=== PATIENT | female | born 1950 | race Caucasian/White ===

== ENCOUNTER 2019-01-15 09:27 | Day surgery (SDC) | payer MEDICARE, BC, OTHER ==
[~2019-01-15] VITALS: Ht 165.1 cm; Wt 106.2 kg
[~2019-01-15 09:27] MED LIST: ACETAMINOPHEN 325 MG TAB PO PRN; BSS with VANC/TOB/EPI for EYE CASES IR ONE; CYCLOPENTOLATE 2% OPHTH SOLN 2ML BTL OS ONE; FISH1000 PO; HEALON DUET PRO(HEALON 10MG/ML 0.55ML & HEALON ENDOCOAT 30MG/ML 0.85ML) As Ordered ONE; LIDOCAINE 1% SDV 5 ML VIAL As Ordered ONE; LIDOCAINE 3.5 % 1ML OPHTH TOPICAL GEL OU ONE; LISI-538 PO; MOXIFLOXACIN IN BSS 0.25MG/0.25ML INTRACAMERAL INJ (OR EYE ONLY)(J2280) As Ordered ONE; MYRB25TA PO; OFLOXACIN 0.3 % (OCUFLOX) OPTH SOL 5ML OS ONE; OMEP20CA3 PO; PHENYLEPHRINE 2.5% OPHTH SOL 2ML OS ONE; PHENYLEPHRINE HCL 10 % OPHTH. SOL 5ML OS PRN; POVIDONE-IODINE 5% OPHTH PREP SOL 30ML As Ordered ONE; PRIL40CA PO; REGL10TA6 PO; TRIAMCINOLONE PRES FR 40 MG/ML 1ML(TRIESENCE)(OR EYE ONLY)(J3300 PER 1MG) As Ordered ONE; TROPICAMIDE 1% OPHTH SOLN 2ML OS ONE; TYLE650T25 PO; TYLE650T35 PO; VESI5TAB2 PO; VITA100067 PO; WELLTAB38 PO
[2019-01-15] MEDS ORDERED: TROPICAMIDE 1% OPHTH SOLN 2ML As Ordered ONE (10:04)
[2019-01-15] MEDS ORDERED: CYCLOPENTOLATE 2% OPHTH SOLN 2ML BTL As Ordered ONE (10:04)
[2019-01-15] MEDS ORDERED: PHENYLEPHRINE 2.5% OPHTH SOL 2ML As Ordered ONE (10:04)
[2019-01-15] MEDS ORDERED: OFLOXACIN 0.3 % (OCUFLOX) OPTH SOL 5ML As Ordered ONE (10:04)
[2019-01-15] MEDS ORDERED: MIDAZOLAM INJ 2 MG/2 ML VIAL (J2250) As Ordered ONE (10:41)
[2019-01-15] MEDS ORDERED: fentaNYL 100 MCG/2 ML INJECTION (J3010) As Ordered ONE (10:41)
[2019-01-15] MEDS ORDERED: LIDOCAINE 2% W/EPIN INJ 20ML **PRES FREE XX ONE (11:13)
[2019-01-15 11:22] VITALS: BP 114/58
[2019-01-15] MEDS ORDERED: AcetaZOLAMIDE 500 MG ER CAP PO ONE (11:45)
[2019-01-15] MEDS ORDERED: TRIMETHOBENZAMIDE 300 MG CAP PO PRN (11:45)
== END 2019-01-15 12:02 | disposition home or self-care (01) ==
LOC: M SDC 09:27
PROVIDERS: ATTEND Ophthalmology
DX: H25.9 Unspecified age-related cataract (principal); I10 Essential (primary) hypertension; E78.5 Hyperlipidemia, unspecified; R73.03 Prediabetes; K21.9 Gastro-esophageal reflux disease without esophagitis; Z88.8 Allergy status to other drugs, medicaments and biological substances; Z79.899 Other long term (current) drug therapy
CPT/HCPCS: 66984; 92015; J2250; J2280; J3010; J3300; V2632

== ENCOUNTER 2019-03-14 07:30 | Day surgery (SDC) | payer MEDICARE, BC, OTHER ==
[~2019-03-14] VITALS: Ht 165.1 cm; Wt 104.3 kg
[~2019-03-14 07:30] MED LIST changes: +CYCLOPENTOLATE 2% OPHTH SOLN 2ML BTL OD ONE; -CYCLOPENTOLATE 2% OPHTH SOLN 2ML BTL OS ONE; +MIDAZOLAM INJ 2 MG/2 ML VIAL (J2250) As Ordered ONE; +OFLOXACIN 0.3 % (OCUFLOX) OPTH SOL 5ML OD ONE; -OFLOXACIN 0.3 % (OCUFLOX) OPTH SOL 5ML OS ONE; +ONDANSETRON 4MG/2ML VIAL (J2405) As Ordered ONE; +PHENYLEPHRINE 2.5% OPHTH SOL 2ML OD ONE; -PHENYLEPHRINE 2.5% OPHTH SOL 2ML OS ONE; +PHENYLEPHRINE HCL 10 % OPHTH. SOL 5ML OD PRN; -PHENYLEPHRINE HCL 10 % OPHTH. SOL 5ML OS PRN; +TROPICAMIDE 1% OPHTH SOLN 2ML OD ONE; -TROPICAMIDE 1% OPHTH SOLN 2ML OS ONE; +VITAD1000T PO; +fentaNYL 100 MCG/2 ML INJECTION (J3010) As Ordered ONE
[2019-03-14] MEDS ORDERED: TRIAMCINOLONE PRES FR 40 MG/ML 1ML(TRIESENCE)(OR EYE ONLY)(J3300 PER 1MG) As Ordered ONE (09:42)
[2019-03-14] MEDS ORDERED: LIDOCAINE 2% W/EPIN INJ 20ML **PRES FREE As Ordered ONE (10:23)
[2019-03-14] MEDS ORDERED: AcetaZOLAMIDE 500 MG ER CAP As Ordered ONE (11:07)
[2019-03-14] MEDS ORDERED: TRIMETHOBENZAMIDE 300 MG CAP PO PRN (11:15)
[2019-03-14] MEDS: AcetaZOLAMIDE 500 MG ER CAP PO ONE (11:20)
[2019-03-14 11:25] VITALS: BP 111/56
== END 2019-03-14 11:35 | disposition home or self-care (01) ==
LOC: M SDC 07:30
PROVIDERS: ATTEND Ophthalmology
DX: H25.9 Unspecified age-related cataract (principal); I10 Essential (primary) hypertension; E78.5 Hyperlipidemia, unspecified; K21.9 Gastro-esophageal reflux disease without esophagitis; R73.03 Prediabetes; Z79.899 Other long term (current) drug therapy
CPT/HCPCS: 66984; 92015; J2250; J2280; J2405; J3010; J3300; V2632

== ENCOUNTER → 2019-11-28 | Outpatient (CLI) | payer MEDICARE, BC, OTHER ==
[~2019-11-28] MED LIST changes: -ACETAMINOPHEN 325 MG TAB PO PRN; -BSS with VANC/TOB/EPI for EYE CASES IR ONE; +CHOL100029 PO; -CYCLOPENTOLATE 2% OPHTH SOLN 2ML BTL OD ONE; -HEALON DUET PRO(HEALON 10MG/ML 0.55ML & HEALON ENDOCOAT 30MG/ML 0.85ML) As Ordered ONE; -LIDOCAINE 1% SDV 5 ML VIAL As Ordered ONE; -LIDOCAINE 3.5 % 1ML OPHTH TOPICAL GEL OU ONE; -MIDAZOLAM INJ 2 MG/2 ML VIAL (J2250) As Ordered ONE; -MOXIFLOXACIN IN BSS 0.25MG/0.25ML INTRACAMERAL INJ (OR EYE ONLY)(J2280) As Ordered ONE; -OFLOXACIN 0.3 % (OCUFLOX) OPTH SOL 5ML OD ONE; +OMEP1CAP73 PO; -OMEP20CA3 PO; -ONDANSETRON 4MG/2ML VIAL (J2405) As Ordered ONE; -PHENYLEPHRINE 2.5% OPHTH SOL 2ML OD ONE; -PHENYLEPHRINE HCL 10 % OPHTH. SOL 5ML OD PRN; -POVIDONE-IODINE 5% OPHTH PREP SOL 30ML As Ordered ONE; -TRIAMCINOLONE PRES FR 40 MG/ML 1ML(TRIESENCE)(OR EYE ONLY)(J3300 PER 1MG) As Ordered ONE; -TROPICAMIDE 1% OPHTH SOLN 2ML OD ONE; -VITAD1000T PO; -fentaNYL 100 MCG/2 ML INJECTION (J3010) As Ordered ONE
[2019-11-28 10:44] LABS: HEMATOCRIT 42.3 % (36.0-47.0); HEMOGLOBIN 13.1 g/dl (12.0-15.5); MEAN CORPUSCULAR HEMOGLOBIN 29.2 pg (27.0-33.0); MEAN CORPUSCULAR VOLUME 94.4 fl (80.0-96.0); PLATELET COUNT, AUTOMATED 201 10^3/uL (150-450); RED BLOOD COUNT 4.48 10^6/uL (4.00-5.40); WHITE BLOOD COUNT 8.2 10^3/uL (4.0-10.0)
[2019-11-28 10:56] LABS: INR 1.06; PROTHROMBIN TIME 13.5 SECONDS (11.8-14.0)
[2019-11-28 11:10] LABS: ERYTHROCYTE SEDIMENTATION RATE 26 mm/hr (0-30)
[2019-11-28 11:12] LABS: ALBUMIN 4.2 GM/DL (3.2-5.2); ALT/SGPT 27 U/L (12-78); BILIRUBIN,TOTAL 0.3 MG/DL (0.2-1.0); BLOOD UREA NITROGEN 22 MG/DL (7-18); CALCIUM LEVEL 8.9 MG/DL (8.8-10.2); CARBON DIOXIDE LEVEL 24 MEQ/L (21-32); CHLORIDE LEVEL 107 MEQ/L (98-107); CREATININE FOR GFR 0.82 MG/DL (0.55-1.30); GLOMERULAR FILTRATION RATE > 60.0 (>45); GLUCOSE, FASTING 116 MG/DL (70-100); POTASSIUM SERUM 4.5 MEQ/L (3.5-5.1); SODIUM LEVEL 138 MEQ/L (136-145); TOTAL PROTEIN 7.3 GM/DL (6.4-8.2)
--- NOTE | 2019-11-28 12:35 | REP ---
PA and lateral chest: Comparison is 11/15/2012. The lung colbert are clear. The cardiac size is normal. The maine, mediastinum, and skeletal structures are unremarkable except for narrowing of the subacromial spaces of the shoulders bilaterally, unchanged. Impression: Essentially negative PA and lateral chest. There is no interval change. Electronically Signed by Nick Salazar MD 11/28/2019 12:28 P
--- NOTE | 2019-11-30 20:01 | ECGEPIP ---
[facility] Test Date: 2019-11-28 Pat Name: JULI ADAM Department: Room: - Gender: Female Emergency Medical Tech: CHANELLE : 1950 Requested By: Bing Hagen Order Number: [id number] Reading MD: Nilton Monge Measurements Intervals [place] Rate: 65 P: 63 WI: 179 QRS: 37 QRSD: 101 T: 51 QT: 409 QTc: 426 Interpretive Statements SINUS RHYTHM NO PRIOR Electronically Signed on 11-30-2019 20:00:59 EST by Nilton Monge
== END ==
LOC: M LAB 10:04
PROVIDERS: ATTEND Orthopaedic Surgery
DX: M16.11 Unilateral primary osteoarthritis, right hip (principal); Z79.01 Long term (current) use of anticoagulants

== ENCOUNTER 2019-12-21 07:41 | Inpatient (IN) | payer MEDICARE, BC, OTHER ==
--- NOTE | 2019-12-11 17:32 | HPE ---
DATE OF ANTICIPATED ADMISSION: 12/21/2019 ATTENDING PHYSICIAN: Dr. Bing Jay CHIEF COMPLAINT: Right hip pain and stiffness. HISTORY: This is a pleasant 69-year-old female patient with progressively worsening right hip pain and stiffness that has failed to improve with conservative management. She has elected for surgery for her continued symptoms and has been consented for a right total hip arthroplasty with Dr. Jay. ALLERGIES: SIMVASTATIN - muscle cramps. CURRENT MEDICATIONS: - lisinopril 20 mg one by mouth daily - Myrbetriq 25 mg one by mouth daily - fish oil 1000 mg one by mouth daily - aspirin 81 mg one by mouth daily - vitamin D 1000 units one by mouth daily - vitamin CoQ10 100 mg one by mouth daily - omeprazole 20 mg one by mouth daily - Crestor 10 mg one by mouth daily - glaucoma drops MEDICAL HISTORY: Hypertension, depression, gastroesophageal reflux disease (GERD), stress incontinence, hyperlipidemia, diverticulosis. SURGICAL HISTORY: Carpal tunnel release, bilateral, dilation and curettage (D and C), colonoscopy, hysterectomy, right hand tendon repair, bilateral cataract extractions. FAMILY HISTORY: Father Alzheimer's, mother breast cancer and lung cancer. SOCIAL HISTORY: Denies tobacco or alcohol use. REVIEW OF SYSTEMS: Denies fever, chills, chest pain, shortness of breath, nausea, vomiting, diarrhea. Denies any recent upper respiratory or urinary tract infection symptoms. PHYSICAL EXAM: She is a well-developed, well-nourished adult female patient in no apparent distress. She ambulates in the clinic today with a non-antalgic gait. Normocephalic, atraumatic. Neck: Supple and nontender with no lymphadenopathy or jugular venous distention (JVD). S1, S2 auscultated. Lungs: Clear to auscultation bilaterally. Abdomen: Soft and nontender. Right hip with overlying skin intact. No obvious deformity. Right lower extremity is well perfused. Chest x-ray: No acute cardiopulmonary process. EKG: Normal sinus rhythm. LABS: PT 13.5, INR 1.06, white count 8.2, red count 4.48, hemoglobin 13.1, hematocrit 42.3, ESR 26, BUN 22, creatinine 0.82. Medical optimization by Magdalena Reddy, Nurse Practitioner, performed and reviewed on chart today. IMPRESSION: Symptomatic right hip osteoarthritis. PLAN: Consented for right hip total arthroplasty with Dr. Jay.
[2019-12-21] VITALS (7 sets, daily range): BP systolic 113–129; BP diastolic 55–74; O2SAT 99
[~2019-12-21] VITALS: Ht 167.6 cm; Wt 108.1 kg
[~2019-12-21 07:41] MED LIST changes: +COMB0.2S OS; +COQ-100C5 PO; +LR 1,000 ML IV ONE; +ROSU10TA6 PO; +TRAV04OPD OU; +VITA1CHW7 PO; +ceFAZolin SOD 2 GM in IV 1 EA IV ONE
[2019-12-21] MEDS ORDERED: ACETAMINOPHEN 500 MG TAB PO ONE (08:30)
[2019-12-21] MEDS ORDERED: ceFAZolin 1GM INJ (J0690 PER 500MG) As Ordered ONE (11:10)
[2019-12-21] MEDS ORDERED: MIDAZOLAM INJ 2 MG/2 ML VIAL (J2250) As Ordered ONE (11:38)
[2019-12-21] MEDS ORDERED: propofoL 200 MG/20 ML VIAL As Ordered ONE (11:38)
[2019-12-21] MEDS ORDERED: LIDOCAINE 2% INJ 100 MG/5 ML SDV (FOR ANES.) As Ordered ONE ×2 (11:38→13:16)
[2019-12-21] MEDS ORDERED: fentaNYL 100 MCG/2 ML INJECTION (J3010) As Ordered ONE (11:38)
[2019-12-21] MEDS ORDERED: ePHEDrine SULFATE 25 MG/5 ML(5MG/ML) SYRINGE As Ordered ONE (12:04)
[2019-12-21] MEDS ORDERED: PHENYLephrine HCL 500 MCG/5 ML (100MCG/ML) SYRINGE (J2370) As Ordered ONE (12:18)
[2019-12-21] MEDS ORDERED: SUGAMMADEX SODIUM 500 MG/5 ML VIAL (BRIDION) As Ordered ONE (13:16)
[2019-12-21] MEDS ORDERED: dexameTHASONE 4 MG/ML 1ML VIAL (J1100) As Ordered ONE (13:17)
[2019-12-21] MEDS ORDERED: METOCLOPRAMIDE INJ 10MG/2ML VIAL (J2765) As Ordered ONE (13:17)
[2019-12-21] MEDS ORDERED: ONDANSETRON 4MG/2ML VIAL (J2405) As Ordered ONE (13:17)
[2019-12-21] MEDS ORDERED: MORPHINE 10 MG/ML 1ML VIAL (J2270) As Ordered ONE (14:07)
[2019-12-21] MEDS: MORPHINE 2 MG/ML 1ML VIAL (J2270) IV PRN ×4 (14:09→14:23)
[2019-12-21] MEDS ORDERED: PERCOCET 5MG/325MG TAB PO PRN ×2 (14:30→16:45)
[2019-12-21] MEDS ORDERED: ONDANSETRON 4MG/2ML VIAL (J2405) IV PRN ×3 (14:30→16:45)
[2019-12-21] MEDS: LR 1,000 ML IV SCH (14:30)
[2019-12-21] MEDS ORDERED: LR 1,000 ML IV SCH ×2 (14:30→16:45)
[2019-12-21] MEDS ORDERED: PHENYLephrine HCL 500 MCG/5 ML (100MCG/ML) SYRINGE (J2370) IV PRN (14:30)
[2019-12-21] MEDS ORDERED: MORPHINE 2 MG/ML 1ML VIAL (J2270) IV PRN ×2 (14:30→16:45)
--- NOTE | 2019-12-21 14:40 | RO ---
DATE OF PROCEDURE: 12/21/2019 PREOPERATIVE DIAGNOSIS: Right hip degenerative arthritis. POSTOPERATIVE DIAGNOSIS: Right hip degenerative arthritis. PROCEDURE: Right total hip arthroplasty using a size 52 [place] cup with a 36 mm neutral polyethylene liner and a high offset size #5 Mitchell stem with +5 neck and a 36 mm ball. Prosthesis made by [employer]. SURGEON: Dr. Bing Jay TRANSPORTATION ECONOMICS TEACHER: Ms. Ashley Smith ANESTHESIA: Spinal. COMPLICATIONS: None. ESTIMATED BLOOD LOSS: 200 mL. PROCEDURE: She was given antibiotics preoperatively, then a successful spinal anesthetic was induced. She was placed in lateral decubitus position, down leg well padded especially peroneal nerve. Right hip area was carefully prepped and draped in usual sterile fashion. Then, after appropriate time-out, a longitudinal incision was made for a direct lateral approach to the hip. Bovie cautery was used to coagulate crossing vessels down to the tensor fascia. It was then divided in line with a skin incision. It was noteworthy that she was quite obese. The gluteus medius was split in the anterior one-third posterior two-third junctions. I dissected down to the underlying gluteus minimus and then the underlying hip capsule was divided successfully, which was carefully dissected off the proximal femur anteriorly as we externally rotated the hip and eventually we were able to dislocate it anteriorly and place the leg in a leg bag. The piriformis fossa was identified. Starter reamer placed, followed by the canal finding reamer and then the lateralizing reamer, and then we began reaming up to a size 4. Then, a femoral neck osteotomy performed. We then began broaching up to a size 4, but we were able to sink that quite a bit. So, I reamed up to a 5 and then placed the 5 broach and if fit very nicely. Calcar planar was utilized proximally. We then exposed the acetabulum and there is a very large labral tear. It is very thickened fibrotic labrum. This was excised circumferentially 360 degrees. We then removed the pulvinar tissues from the depth of the acetabulum and then began reaming sequentially beginning at 47 mm, advancing up to 51. A trial 52 cup actually fit very nicely and we did use the extramedullary guide to help set our version and abduction. Thus, I elected to go with the 52 cup. We copiously irrigated out the acetabulum, then placed real cup using extramedullary alignment guide. Central hole eliminator was placed. We then placed the real polyethylene, made sure it was well seated, and then we began trialing with the #5 broach. We first trialed with a 1.5 standard offset. The cup is in very good position. She is actually very stable with flexion internal rotation and extension external rotation, but there was excessive telescoping. Thus, I advanced up to a +5. She still had a bit of more telescoping than I felt comfortable with. Thus, I did go ahead and trial with the high offset stem because I did deepen the cut a fair amount. I did trial the high offset with a +5 neck and this eliminated the telescoping and the soft tissues I did check and they were not excessively tight. Thus, I felt the high offset would be appropriate for her. I removed the trial broach. Copiously pulsatile lavage irrigated out the femoral canal. Placed the real high offset #5 Mitchell stem and it seated nicely. Dried the trunnion and placed the +5 x 36 mm ball, then reduced the hip after irrigating once again. We then anatomically closed the gluteus minimus and the anterior hip capsule back anatomically, followed by gluteus medianus repair anatomically to the greater trochanter, irrigating between layers, closed the tensor fascia with a combination of #1 PDS sutures and a running single-armed #1 Stratafix, irrigating between layers, then closed the subdermal tissues with interrupted #2-0 PDS sutures. Then, the skin was closed with nery covered by an Optifoam and dry sterile bulky dressing. Ms. Ashley Smith was critical to the success of this very difficult surgery because of the size of her leg, by helping with the appropriate soft tissue retraction, helped to reduce and redislocate the hip as needed so I could perform the operation smoothly, efficiently and safely. She also helped prepare the patient, position the patient and helped to close the wound, amongst many other tasks.
[2019-12-21] MEDS: fentaNYL 100 MCG/2 ML INJECTION (J3010) IV PRN ×2 (14:49→14:59)
--- NOTE | 2019-12-21 14:54 | REP ---
Portable right hip, postoperative study: There is a total hip arthroplasty. The components are tightly applied and in satisfactory positions alignment. Skin nery are incidentally noted. Electronically Signed by Nick Salazar MD 12/21/2019 02:46 P
[2019-12-21] MEDS ORDERED: MORPHINE 2 MG/ML 1ML VIAL (J2270) IV ONE (16:00)
[2019-12-21] MEDS: MORPHINE 4 MG/ML 1ML VIAL/SYRINGE (J2270) IV PRN ×4 (16:08→21:50)
[2019-12-21] MEDS ORDERED: PHENYLephrine HCL 500 MCG/5 ML (100MCG/ML) SYRINGE (J2370) IV SCH (16:45)
[2019-12-21] MEDS ORDERED: ACETAMINOPHEN 650MG ER TAB (TYLENOL ARTHRITIS) PO PRN (16:45)
[2019-12-21] MEDS ORDERED: fentaNYL 100 MCG/2 ML INJECTION (J3010) IV PRN (16:45)
--- NOTE | 2019-12-21 17:43 | CR.PDOC ---
General Date of Consultation: Dec 21, 2019 Referring Provider: Bing Jay Consultation REASON FOR CONSULTATION/CHIEF COMPLAINT: Management of medical comorbidities HISTORY OF PRESENT ILLNESS: Mrs. Storm is a 69-year-old female admitted for a total right hip replacement. Pt reported she has had pain in the right hip for several years now. The pain has worsened over the past few months. She has failed outpatient therapy including steroid injections. The pain from the right hip was affecting her daily life. Patient reported some pain in the right hip, otherwise her review of systems is negative (see below). ALLERGIES: Please see below. HOME MEDICATIONS: Please see below. PAST MEDICAL HISTORY: 1. Hypertension 2. Depression 3. Stress incontinence 4. Hyperlipidemia 5. Diverticulosis PAST SURGICAL HISTORY: 1. Hysterectomy 2. D&C 3. Bilateral carpal tunnel release 4. Tendon repair, right hand 5. Bilateral cataract extractions FAMILY HISTORY: Father: [, Alzheimer's] Mother: [, diabetes, hypertension, and lung cancer] SOCIAL HISTORY: Tobacco use:[Denied] ETOH: [Denied] Illicit drug use: [Denied] IV drug use: [Denied] REVIEW OF SYSTEMS: Constitutional: Denies: Chills, Fever, Night Sweats Eyes: Denies: Pain ENT: Denies: Head Aches Skin: Denies: Rash Pulmonary: Denies: Dyspnea, Cough Cardiovascular: Denies: Chest Pain, Palpitations, Orthopnea, Paroxysmal Noc. Dyspnea, Lt Headedness Gastrointestinal: Denies: Nausea, Vomiting, Abdominal Pain, Diarrhea Genitourinary: Denies: Dysuria Musculoskeletal: Reports: Pain in the right hip, aching 7-8/10. Denies: Neck Pain, Back Pain, Muscle Pain, Spasms Neurological: Denies: Weakness, Numbness Psych: Reports: Mood Normal; PHYSICAL EXAMINATION: VITAL SIGNS: Please see below. General Exam: Positive: Alert, Mild Distress due to hip pain Eye Exam: Positive: PERRLA, Conjunctiva & lids normal, EOMI; Negative: Sclera icteric ENT Exam: Positive: Atraumatic, Mucous membr. moist/pink, Pharynx Normal Neck Exam: Positive: Supple; Negative: thyromegaly Chest Exam: Positive: Clear to auscultation, Normal air movement Heart Exam: Positive: Rate Normal, Regular Rhythm, Normal S1, Normal S2; Negative: Murmurs, Rubs Telemetry: Positive: No significant arrhythmia Abdomen Exam: Positive: Normal bowel sounds, Soft; Negative: Tenderness Extremity Exam: Positive: Surgical bandage over R hip Negative: Clubbing, Cyanosis, Edema Skin Exam: Positive: Nl turgor and temperature; Neuro Exam: Positive:Normal Speech Psych Exam: Positive: Mood NL, Oriented x3. LABORATORY DATA: Please see below. ASSESSMENT/PLAN: Hip replacement, right - Management per orthopedics Hypertension - Resume Lisinopril with hold parameters Hyperlipidemia - Resume Crestor Stress incontinence - Myrbetriq is not on the hospital formulary; on hold DVT Prophylaxis: Xarelto Vital Signs/I&O Vital Signs Date Time Temp Pulse Resp B/P (MAP) Pulse Ox O2 Delivery O2 Flow Rate FiO2 12/21/19 16:08 68 18 99 Nasal Cannula 2.0 12/21/19 15:30 97.8 118/69 (85) Allergies Coded Allergies: Yhjqxde-Wrz-Mfw Reductase Inhibitor (Verified Adverse Reaction, Mild, muscle aches, 12/21/19) Home Medications Scheduled Brimonidine Tartrate/Timolol (Combigan 0.2%-0.5% Eye Drops) 5 Ml Drops, 1 KATY OS BID, (Reported) Cholecalciferol (Vitamin D3) (Vitamin D3) 2,000 Unit Tab.chew, 2,000 UNIT PO DAILY, (Reported) Lisinopril (Lisinopril) 20 Mg Tab, 20 MG PO DAILY, (Reported) Mirabegron (Myrbetriq) 25 Mg Tab, 25 MG PO DAILY, (Reported) [place]-3 Fatty Acids/Fish Oil (Fish Oil 1,000 mg Capsule) 1,000 Mg Cap, 1,000 MG PO DAILY, (Reported) Omeprazole (Omeprazole) 20 Mg Cap, 20 MG PO DAILYPRN, (Reported) Rosuvastatin Calcium (Rosuvastatin Calcium) 10 Mg Tablet, 10 MG PO DAILY, (Reported) Travoprost (Travatan Z) 0.004% 2.5ML Drops, 1 DROP OU QPM, #3 (Reported) Ubidecarenone (Coq-10) 100 Mg Capsule, 100 MG PO DAILY, (Reported) Scheduled PRN Acetaminophen (Tylenol Arthritis) 650 Mg Tab, 650 MG PO Q8HP PRN for PAIN, (Reported) GISELA BRODERICK PA-C Dec 21, 2019 17:34
[2019-12-21] MEDS: PERCOCET 5MG/325MG TAB PO PRN (20:18)
[2019-12-21] MEDS: ceFAZolin SOD 2 GM in IV 1 EA IV SCH (20:19)
[2019-12-21] MEDS ORDERED: LATANOPROST 0.005% OPHTH SOLN 2.5 ML OU SCH (21:00)
[2019-12-22 01:12] VITALS: BP 131/68
[2019-12-22] MEDS: PERCOCET 5MG/325MG TAB PO PRN ×3 (02:06→14:56)
[2019-12-22] MEDS: LR 1,000 ML IV SCH (02:51)
[2019-12-22] MEDS: ceFAZolin SOD 2 GM in IV 1 EA IV SCH ×2 (04:20→13:21)
[2019-12-22 05:58] VITALS: BP 128/65
[2019-12-22] MEDS: MORPHINE 4 MG/ML 1ML VIAL/SYRINGE (J2270) IV PRN (06:43)
[2019-12-22 06:59] LABS: HEMATOCRIT 36.3 % (36.0-47.0); HEMOGLOBIN 11.4 g/dl (12.0-15.5); MEAN CORPUSCULAR HGB CONC 31.4 g/dl (32.0-36.5); MEAN CORPUSCULAR VOLUME 95.5 fl (80.0-96.0); PLATELET COUNT, AUTOMATED 181 10^3/uL (150-450); WHITE BLOOD COUNT 10.4 10^3/uL (4.0-10.0)
[2019-12-22 07:21] LABS: BLOOD UREA NITROGEN 12 MG/DL (7-18); CALCIUM LEVEL 8.2 MG/DL (8.8-10.2); CARBON DIOXIDE LEVEL 27 MEQ/L (21-32); CHLORIDE LEVEL 104 MEQ/L (98-107); CREATININE FOR GFR 0.77 MG/DL (0.55-1.30); GLOMERULAR FILTRATION RATE > 60.0 (>45); GLUCOSE, FASTING 135 MG/DL (70-100); POTASSIUM SERUM 4.4 MEQ/L (3.5-5.1); SODIUM LEVEL 137 MEQ/L (136-145)
[2019-12-22] MEDS ORDERED: MS C15TA8 PO (07:56)
[2019-12-22] MEDS ORDERED: PERC5TAB12 PO (07:56)
[2019-12-22] MEDS ORDERED: XARE10TA PO (07:56)
--- NOTE | 2019-12-22 08:37 | IPN ---
DATE: 12/22/2019 Rod has no chest pain, shortness of breath, and anticipates discharge today. She is an orthopedic patient, and the hospitalist's group is following her for her blood pressure. PHYSICAL EXAM: 128/65. LUNGS: Clear. HEART: Regular rate and rhythm. ABDOMEN: Soft. Nontender. IMPRESSION: Hypertension. Well controlled. Apparently, discharge is planned for today. We will not see the patient again unless a medical problem develops in the interim.
[2019-12-22] MEDS ORDERED: MORPHINE 15 MG SA TAB PO SCH (09:00)
[2019-12-22] MEDS ORDERED: ROSUVASTATIN 10 MG TAB (CRESTOR) PO SCH (09:00)
[2019-12-22] MEDS ORDERED: OMEPRAZOLE 20 MG CAP PO SCH (09:00)
[2019-12-22] MEDS ORDERED: MIRALAX *UNIT DOSE* 17GM PACKET PO SCH (09:00)
[2019-12-22] MEDS ORDERED: MOM 30ML SUSPENSION UDC PO SCH (09:00)
[2019-12-22] MEDS ORDERED: SENOKOT S TAB PO SCH (09:00)
[2019-12-22] MEDS ORDERED: lisinopriL 20 MG TAB PO SCH (09:00)
[2019-12-22 09:12] VITALS: BP 132/86
[2019-12-22 10:00] VITALS: BP 131/62
[2019-12-22 14:00] VITALS: BP 123/57
[2019-12-22] MEDS ORDERED: RIVAROXABAN 10 MG TAB (XARELTO) PO SCH (18:00)
--- NOTE | 2019-12-25 10:03 | DSES ---
DATE OF ADMISSION: 12/21/2019 DATE OF DISCHARGE: 12/22/2019 ATTENDING PHYSICIAN: Dr. Hieu Jay CHIEF COMPLAINT: Right hip pain and stiffness. ADMISSION DIAGNOSIS: Right hip osteoarthritis. OTHER DIAGNOSES: Hypertension. Depression. Gastroesophageal reflux disease (GERD). Stress incontinence. Hyperlipidemia. Diverticulosis. POSTOPERATIVE DIAGNOSIS: Right hip osteoarthritis status post right total hip arthroplasty. OPERATION PERFORMED: Right total hip arthroplasty. HISTORY: This is a pleasant 69-year-old female patient with progressively worsening right hip pain and stiffness who had opted for surgical treatment for her continued symptoms. She was admitted on the day of surgery for a right total hip arthroplasty with Dr. Jay. Surgery was without complication. The did well in the postop period. Was ambulating with physical therapy per their protocol. Pain was controlled. On the day of discharge, she will resume preoperative medications and diet along with oral pain medications for pain control. She will followup in our office in 7-10 days for postop followup. Postoperative instructions to include but not limited to wound monitoring and activity limitations were provided. Please see the medical record for further details.
== END 2019-12-22 16:25 | disposition home or self-care (01) | DRG 470 ==
LOC: M OR 07:41 → M MS5PR 15:40
PROVIDERS: ADMIT Orthopaedic Surgery; ATTEND Orthopaedic Surgery
PROC: 0SR902Z Replacement of Right Hip Joint with Metal on Polyethylene Synthetic Substitute, Open Approach (ICD-10-PCS; principal; 2019-12-21 09:45)
DX: M16.11 Unilateral primary osteoarthritis, right hip (principal); I10 Essential (primary) hypertension; F32.9 Major depressive disorder, single episode, unspecified; K21.9 Gastro-esophageal reflux disease without esophagitis; E78.5 Hyperlipidemia, unspecified; K57.90 Diverticulosis of intestine, part unspecified, without perforation or abscess without bleeding; N39.3 Stress incontinence (female) (male); Z98.41 Cataract extraction status, right eye; Z98.42 Cataract extraction status, left eye; Z90.710 Acquired absence of both cervix and uterus; Z79.82 Long term (current) use of aspirin; Z79.899 Other long term (current) drug therapy; Z88.8 Allergy status to other drugs, medicaments and biological substances

== ENCOUNTER → 2021-02-06 | Outpatient (CLI) | payer MEDICARE, BC, OTHER ==
[~2021-02-06] MED LIST changes: +ACET650T61 PO; +ISOVUE-300 61% 50ML VIAL As Ordered ONE; +LIDOCAINE 1% MDV 20ML VIAL As Ordered ONE; -LISI-538 PO; +LISI20TA33 PO; -LR 1,000 ML IV ONE; +MS C15TA8 PO; +PERC5TAB12 PO; +TRIAMCINOLONE ACETONIDE SUSP 40 MG/ML VIAL (J3301) As Ordered ONE; -TYLE650T35 PO; +XARE10TA PO; -ceFAZolin SOD 2 GM in IV 1 EA IV ONE
--- NOTE | 2021-02-06 16:54 | REP ---
INDICATION: LEFT ANKLE OSTEOARTHRITIS. COMPARISON: None. TECHNIQUE: The procedure was performed under the direct supervision of Dr. Kim. The benefits and risks including but not limited to pain infection bleeding and anaphylaxis were explained to the patient and informed consent was obtained. The left subtalar joint space was localized using fluoroscopic guidance. The skin was prepped and draped in a sterile fashion. 1% lidocaine was used as a local anesthetic. Using fluoroscopic guidance a 25 gauge needle was inserted and advanced into the joint. 0.5 cc of Isovue-300 was injected to verify placement. 4 cc of a solution containing 3 cc of 1% lidocaine and 1 cc Kenalog 40 mg was injected. The needle was then removed. The patient tolerated the procedure well and there were no immediate complications. Less than 6 seconds of fluoroscopy time was utilized for this procedure. FINDINGS: None IMPRESSION: Fluoro guidance for left subtalar joint injection. <Electronically signed by Cristo Diaz > 02/06/21 [id number] <Electronically signed by Nick Kim > 02/06/21 [id number]
== END ==
LOC: M RADPRO 10:57
PROVIDERS: ATTEND Physician Assistant
DX: M19.072 Primary osteoarthritis, left ankle and foot (principal)
CPT/HCPCS: 20605; 77002; J3301; Q9967

== ENCOUNTER → 2021-09-01 | Outpatient (CLI) | payer MEDICARE, BC, OTHER ==
--- NOTE | 2021-09-02 17:23 | REP ---
INDICATION: OSTEOARTHRITIS. COMPARISON: None TECHNIQUE: The procedure was performed by HARDIK Zelaya, under the direct supervision of Dr. Kim. The benefits and risks of the procedure were explained to the patient, and an informed consent was obtained. Directly prior to the start of the procedure, a formal time-out was completed in the procedure room. The left subtalar joint space was localized using fluoroscopic guidance. The skin was prepped and draped in a sterile fashion. Approximately 4 mL of 1% Lidocaine 10 mg/ml was used as a local anesthetic. Using fluoroscopic guidance, a 25 gauge needle was inserted and advanced into the left subtalar joint space. Approximately 2 mL of Isovue 300 was injected to verify placement. Four mL of a solution containing 3 mL 1% lidocaine 10 mg/ml and 1 mL Kenalog 40 mg/mL was injected into the joint space. The needle was removed and hemostasis was achieved. FINDINGS: The patient tolerated the procedure well and there were no immediate complications. IMPRESSION: 1. Technically successful left subtalar joint injection. 0.3 minutes of fluoroscopy time was utilized for this procedure. Some fluoroscopic images are performed with last image hold technology. These images require no additional radiation. <Electronically signed by Clair Reed > 09/01/21 [id number] <Electronically signed by Nick Kim > 09/02/21 [id number]
== END ==
LOC: M RADPRO 11:11
PROVIDERS: ATTEND Physician Assistant
DX: M19.072 Primary osteoarthritis, left ankle and foot (principal)
CPT/HCPCS: 20605; 77002; J3301; Q9967

== ENCOUNTER → 2022-02-25 | Outpatient (CLI) | payer MEDICARE, BC, OTHER | LOC: M RADPRO 15:08 | PROVIDERS: ATTEND Physician Assistant | DX: M19.072 Primary osteoarthritis, left ankle and foot (principal) | CPT/HCPCS: 20605; 77002; J3301; Q9967 ==

== ENCOUNTER → 2022-07-09 | Outpatient (CLI) | payer MEDICARE, BC, OTHER | LOC: M RAD 10:51 | PROVIDERS: ATTEND Physician Assistant | DX: M17.12 Unilateral primary osteoarthritis, left knee (principal) | CPT/HCPCS: 76000; J3301; Q9967 ==

== ENCOUNTER → 2023-01-25 | Outpatient (REF) | payer MEDICARE, OTHER ==
[~2023-01-25] MED LIST changes: -ISOVUE-300 61% 50ML VIAL As Ordered ONE; -LIDOCAINE 1% MDV 20ML VIAL As Ordered ONE; -TRIAMCINOLONE ACETONIDE SUSP 40 MG/ML VIAL (J3301) As Ordered ONE
[2023-02-02 14:09] LABS: CHLAMYDIA PNEUMONIAE IgG <1:100 (< 1:100); CHLAMYDIA PNEUMONIAE IgM <1:10 (< 1:10); CHLAMYDIA PSITTACI IgG <1:100 (< 1:100); CHLAMYDIA PSITTACI IgM <1:10 (< 1:10); CHLAMYDIA TRACHOMATIS IgG <1:100 (< 1:100); CHLAMYDIA TRACHOMATIS IgM <1:10 (< 1:10)
[2023-02-07 12:15] LABS: MYCOPLASMA PNEUMONIAE IgG 908 U/mL (0-99)
[2023-02-07 12:18] LABS: MYCOPLASMA PNEUMONIAE IgM <770 U/mL (0-769)
== END ==
LOC: M LAB REF 16:58
PROVIDERS: ATTEND Nurse Practitioner Adult Health
DX: J47.9 Bronchiectasis, uncomplicated (principal)

== ENCOUNTER → 2023-01-27 | Outpatient (CLI) | payer MEDICARE, OTHER ==
[2023-01-28 23:07] LABS: L. PNEUMOPHILA (1,3,4,5,6,8) <0.91 OD ratio (0.00-0.90)
== END ==
LOC: M LAB 13:50
PROVIDERS: ATTEND Nurse Practitioner Adult Health
DX: J47.9 Bronchiectasis, uncomplicated (principal)

== ENCOUNTER → 2023-04-04 | Outpatient (CLI) | payer MEDICARE, BC, OTHER ==
[~2023-04-04] MED LIST changes: +ISOVUE-300 61% 100ML VIAL As Ordered ONE; +LIDOCAINE 1% MDV 20ML VIAL As Ordered ONE; +methylPREDNISolone SUSP 40MG/ML 1ML VIAL (DEPO MEDROL) As Ordered ONE
== END ==
LOC: M RAD 14:42
PROVIDERS: ATTEND Physician Assistant
DX: M19.072 Primary osteoarthritis, left ankle and foot (principal)
CPT/HCPCS: 20605; 77002; J1030; Q9967

== ENCOUNTER → 2023-06-30 | Outpatient (REF) | payer MEDICARE, OTHER ==
[~2023-06-30] MED LIST changes: -ISOVUE-300 61% 100ML VIAL As Ordered ONE; -LIDOCAINE 1% MDV 20ML VIAL As Ordered ONE; -methylPREDNISolone SUSP 40MG/ML 1ML VIAL (DEPO MEDROL) As Ordered ONE
== END ==
LOC: M LAB REF 16:55
PROVIDERS: ATTEND Nurse Practitioner Adult Health
DX: J47.9 Bronchiectasis, uncomplicated (principal)

== ENCOUNTER → 2023-12-09 | Outpatient (CLI) | payer MEDICARE, BC, OTHER ==
[~2023-12-09] MED LIST changes: +ISOVUE-300 61% 100ML VIAL As Ordered ONE; +LIDOCAINE 1% MDV 20ML VIAL As Ordered ONE; +methylPREDNISolone SUSP 40MG/ML 1ML VIAL (DEPO MEDROL) As Ordered ONE
== END ==
LOC: M RAD 13:48
PROVIDERS: ATTEND Physician Assistant
DX: M19.072 Primary osteoarthritis, left ankle and foot (principal)
CPT/HCPCS: 20605; 77002; J1030; Q9967

== ENCOUNTER → 2024-05-15 | Outpatient (CLI) | payer MEDICARE, BC ==
[~2024-05-15] MED LIST changes: -ROSU10TA6 PO; +ROSU10TA61 PO
== END ==
LOC: M RAD 09:39
PROVIDERS: ATTEND Physician Assistant
DX: M19.072 Primary osteoarthritis, left ankle and foot (principal)
CPT/HCPCS: 20605; 77002; J1010; Q9967

== ENCOUNTER → 2024-07-05 | Outpatient (REF) | payer MEDICARE, BC ==
[~2024-07-05] MED LIST changes: -ISOVUE-300 61% 100ML VIAL As Ordered ONE; -LIDOCAINE 1% MDV 20ML VIAL As Ordered ONE; -methylPREDNISolone SUSP 40MG/ML 1ML VIAL (DEPO MEDROL) As Ordered ONE
== END ==
LOC: M LAB REF 11:29
PROVIDERS: ATTEND Nurse Practitioner Adult Health
DX: R05.9 Cough, unspecified (principal)

== ENCOUNTER → 2024-07-19 | Outpatient (CLI) | payer MEDICARE, BC | LOC: M PLARAD 14:16 | PROVIDERS: ATTEND Physician Assistant | DX: M19.072 Primary osteoarthritis, left ankle and foot (principal) ==

== ENCOUNTER → 2024-08-30 | Outpatient (CLI) | payer MEDICARE, BC ==
[~2024-08-30] MED LIST changes: +ISOVUE-300 61% 100ML VIAL As Ordered ONE; +LIDOCAINE 1% MDV 20ML VIAL As Ordered ONE; +methylPREDNISolone SUSP 40MG/ML 1ML VIAL (DEPO MEDROL) As Ordered ONE
== END ==
LOC: M RAD 14:34
PROVIDERS: ATTEND Physician Assistant
DX: M19.072 Primary osteoarthritis, left ankle and foot (principal)
CPT/HCPCS: 20605; 77002; J1010; Q9967

== ENCOUNTER → 2025-01-23 | Outpatient (CLI) | payer MEDICARE, BC | LOC: M RAD 15:03 | PROVIDERS: ATTEND Physician Assistant | DX: M19.072 Primary osteoarthritis, left ankle and foot (principal) | CPT/HCPCS: 20605; 77002; J1010; Q9967 ==